=== PATIENT | male | born 1995 | race Hispanic/Latino ===

== ENCOUNTER 2019-12-14 12:30 | Emergency (ER) | payer OTHER, SELFPAY ==
[2019-12-14 12:48] VITALS: BP 142/73; PULSE 108; RESP 20; TEMP 36.8; O2SAT 98
--- NOTE | 2019-12-14 13:21 | ED.MALEGU ---
HPI - Male Genitourinary General Chief complaint: Urogenital-Male Stated complaint: Blood in urine Time Seen by Provider: 12/14/19 13:13 Source: patient and RN notes reviewed Mode of arrival: ambulatory Limitations: no limitations History of Present Illness HPI Narrative: Patient presents today with a 3 to 4-day history of dark-colored urine. When asked if he had pain with urination, patient states, I have a funny feeling afterwards. Denies concerns for sexually transmitted infections. Denies nausea, vomiting, fever, abdominal pain. He has tried no [id number] treatment prior to arrival. Denies discharge from the penis. Denies pain or swelling in the scrotum. MD Complaint: other (Dark-colored urine) Related Data Allergies Allergy/AdvReac Type Severity Reaction Status Date / Time Cultivated Oat Pollen Allergy Unknown RASH Uncoded 06/18/19 18:41 Review of Systems Review of Systems: Narrative: CONSTITUTIONAL: Denies body aches, fever, chills, or sweats. EYES: Denies visual changes, redness, or discharge. ENT: Denies rhinorrhea, congestion, sore throat, or otalgia. CARDIOVASCULAR: Denies chest pain, palpitations, or edema. RESPIRATORY: Denies cough or dyspnea. GASTROINTESTINAL: Denies abdominal pain, nausea, vomiting, or diarrhea. GENITOURINARY: Denies dysuria or hematuria. Dark urine SKIN: Denies rash, itching, or wounds. MUSCULOSKELETAL: Denies back pain, joint pain, or myalgia. NEUROLOGIC: Denies headache, numbness, tingling, or weakness. PSYCH: Denies depression or anxiety. PMFSH Comments At time of signature, I have reviewed and agree with nursing past medical, surgical, social and family history unless otherwise noted. Please see nursing chart for further information. There is no relevant family history pertinent to the presenting complaint Exam Narrative: Exam Narrative: GENERAL: Well-appearing, well-nourished, and in no acute distress. HEAD: Normocephalic, atraumatic. EYES: EOMI. No redness or drainage. Conjunctivae normal. ENT: Mucous membranes pink and moist. NECK: Normal AROM. CHEST: No respiratory distress. Clear to auscultation. HEART: Regular rate and rhythm. No murmur appreciated. Normal peripheral pulses. ABDOMEN: Soft, nontender, nondistended, normal active bowel sounds. MUSCULOSKELETAL: No bony tenderness. EXTREMITIES: Normal range of motion. No edema. SKIN: Warm, dry, no rash. NEURO: No focal deficits. Alert and oriented x3. Gait steady. PSYCH: Normal affect. No signs of depression or anxiety. Course Vital Signs Vital signs: Vital Signs Temperature 98.2 F 12/14/19 12:48 Pulse Rate 108 H 12/14/19 12:48 Respiratory Rate 20 12/14/19 12:48 Blood Pressure 142/73 H 12/14/19 12:48 Pulse Oximetry 98 12/14/19 12:48 Temperature 98.2 F 12/14/19 12:48 Pulse Rate 108 H 12/14/19 12:48 Respiratory Rate 12/14/19 12:48 Blood Pressure 142/73 H 12/14/19 12:48 Pulse Oximetry 98 12/14/19 12:48 Reviewed. Pt has been instructed to follow up with his PCP regarding his elevated blood pressure today. MDM - Male Genitourinary Lab Data Attestation: I reviewed the patient's lab results. Labs: Urine Glucose Negative Reference Range: Negative Urine Bilirubin 1+ Reference Range: Negative Urine Ketone Negative Reference Range: Negative Urine Specific [place] 1.020 Reference Range:1.001-1.035 Urine Blood Negative Reference Range: Negative * * Urine pH 7.0 Reference Range: 5.0-9.0 Urine Protein 2+ Reference Range: Negative Urine Urobilinogen 1.0 Reference Range: 0.2-1.0 Urine Nitrate Positive Reference Range: Negative Urine Leukocyte Negative Reference Range: N
== END 2019-12-14 13:27 | disposition home or self-care (01) ==
PROVIDERS: Emergency Provider Nurse Practitioner
DX: N30.00 Acute cystitis without hematuria (principal)
CPT/HCPCS: 81003; 87086; 99213; G0463

== ENCOUNTER 2019-12-16 14:59 | Emergency (ER) | payer OTHER, SELFPAY ==
--- NOTE | ~2019-12-16 | CT_ITS ---
EXAMINATION: CT abdomen pelvis w con DATE: 12/16/2019 15:58 INDICATION: Left-sided abdominal pain TECHNIQUE: Computed tomography (CT) of the abdomen and pelvis was performed with 100 mL Omnipaque-350 intravenous contrast. Automated exposure control and iterative reconstruction technique were employe d. The dose-length product was 932.20 mGy-cm. COMPARISON: 06/18/2019 FINDINGS: Lung bases are clear. Heart size is normal. No pericardial or pleural effusion. Liver, gallbladder, s pleen, pancreas, bilateral adrenal glands and kidneys are normal. Moderate amount of stool at the rec jewell and distal sigmoid colon. No obstruction or abnormal bowel wall thickening. Appendix is normal. B ladder is normal. No free intraperitoneal gas or fluid. Interval decrease in relatively symmetric sti ll mildly prominent bilateral distal external iliac lymph nodes. For reference the axis diameters hav e decreased from 1.7 cm on the left and 1.5 cm on the right on the prior study to currently measuring 1.2 cm on both the left and right. No other pathologically enlarged abdominal or pelvic lymphadenopa thy. Tiny fat-containing umbilical hernia. Bone island at the subtrochanteric left femur. Bones are o therwise unremarkable. IMPRESSION: 1. No acute intra-abdominal/pelvic process. 2. Interval decrease in size in likely reactive bilateral external iliac chain lymph nodes. 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
[2019-12-16 15:00] VITALS: BP 146/89; PULSE 124; RESP 18; TEMP 36.3; O2SAT 94
--- NOTE | 2019-12-16 15:08 | ED.ABDPAIN ---
HPI - Abdominal Pain General Chief Complaint: Abdominal Pain Stated Complaint: left side pain Time Seen by Provider: 12/16/19 15:07 Source: patient Mode of arrival: ambulatory Limitations: no limitations History of Present Illness HPI narrative: The pt is a 24 y/o male who presents to the ED with c/o hematuria and lt flank pain that began 2 days ago. The pt describes his pain as intermittent and sharp. He was seen at the [facility] 2 days ago and was given antibiotics. He was contacted today and told that his cultures came back negative for bacteria and was advised to come to the ED to rule out kidney stones. The pt reports nausea and a dry cough, but denies vomiting, diarrhea, testicular pain, rash, dysuria, rt flank pain, or fever. He notes that he did have painful urination 2 days ago, which is what made him decide to visit the clinic. The pt denies a history of hepatitis or STDs. He also denies any recent travel or using any IV drugs. The pt is not currently sexually active but has had sexual intercourse with female partners in the past. He has a PMHx of pneumonia, which he was worked up for at a couple of weeks ago. He does not smoke and drinks occasionally. MD elicited complaint: flank pain (lt) and other (hematuria) Onset (ago): day(s) (2) Location: L flank Associated symptoms: nausea and other (dry cough) Related Data Allergies Allergy/AdvReac Type Severity Reaction Status Date / Time Cultivated Oat Pollen Allergy Unknown RASH Uncoded 06/18/19 18:41 Review of Systems Review of Systems: Narrative: CONSTITUTIONAL: Denies fever. RESPIRATORY: Reports dry cough. GASTROINTESTINAL: Reports nausea. Denies vomiting or diarrhea. GENITOURINARY: Reports rt flank pain and hematuria. Denies testicular pain, rt flank pain, or dysuria. SKIN: Denies rash. All systems reviewed & are unremarkable except as noted in HPI and below PMFSH Past Medical History Medical History (Updated 12/16/19 @ 17:34 by Zuri Ames MD) Bronchitis Neutropenia Pneumonia Seasonal allergies Surgical History Surgical History (Updated 12/16/19 @ 16:08 by Carolina Kay) No pertinent past surgical history Social History Social History (Updated 12/16/19 @ 16:08 by Carolina Kay) Smoking status: Never smoker Alcohol intake: current Substance use: never Exam Narrative: Exam Narrative: GENERAL: Well-appearing, well-nourished, and in no acute distress. HEAD: Normocephalic, atraumatic. EYES: PERRLA and EOMI. Sclera icterus. ENT: Nares clear, no rhinorrhea or epistaxis. Mucous membranes moist. NECK: Supple. CHEST: Clear to auscultation. No respiratory distress. HEART: Tachycardic. Regular rhythm. No murmur heard. Normal peripheral pulses. ABDOMEN: Soft, mild lt middle ABD tenderness, nondistended, normal active bowel sounds. EXTREMITIES: Normal range of motion. No edema. SKIN: Warm, dry, no rash. Jaundice. NEURO: No focal deficits. Alert and oriented X3. Course Course Emergency Course: Pt presented for evaluation of abdominal pain, jaundice. At time of assessment, pt with ABCs intact. Vital signs notable for tachycardia. Pt not hypotensive. He has mild left abdominal tenderness. When compared to his sibling, patient is very jaundiced. When asked, patient also states he has noticed yellowing of his skin. When I reviewed his urine sample from urgent care visit, he had elevation in urobilinogen, and this persists on urinalysis today. Patient without transaminitis. Hepatitis panel is negative. He has a mild anemia. Given elevation in indirect bilirubin, I suspect this is a hemolysis issue, patient may have sickle cell disease, Guilbert syndrome,Crigler Najer syndrome. Patient has no primary care provider and has not had a work-up for any of this previously. I spoke with hematology as well as gastroenterology who will start the work-up on this patient. Patient was given the information for follow-up, he was given a copy of his CT
[2019-12-16] MEDS: SODIUM CHLORIDE 0.9% IV 1,000 ML 999 ML IV CONT ×2 (15:37→16:45)
[2019-12-16] MEDS: ONDANSETRON INJ 4 MG/2 ML VIAL IV PUSH (15:37)
[2019-12-16 15:42] LABS: Basophils Percent Auto 0.5 % (0.2-1.2); Eosinophils Percent Auto 0.4 % (0-4.4); Hematocrit 28.9 % (42.0-52.0); Hemoglobin 9.6 g/dL (14.0-18.0); Immature Granulocyte Absolute 0.21 K/mm3 (0.00-0.031); Immature Granulocyte Percent A 2.8 % (0-0.5); Lymphocytes Absolute Auto 1.51 K/mm3 (0.9-3.2); Lymphocytes Percent Auto 20.3 % (18.3-44.2); Mean Corpuscular HGB Conc 33.2 g/dl (32-36); Mean Corpuscular Hemoglobin 31.5 pg (26-34); Mean Corpuscular Volume 94.8 fl (80-100); Mean Platelet Volume 9.4 fl (7.4-10.4); Monocytes Absolute Auto 0.4 K/mm3 (0.1-0.6); Neutrophils Absolute Auto 5.3 K/mm3 (1.3-6.7); Nucleated Red Blood Cells Absolute Auto 0.1 K/mm3 (0.0-0.012); Nucleated Red Blood Cells Perc 0.7 % (0.0-0.2); Platelet Count Result 508 k/mm3 (150-375); Red Blood Count 3.05 M/mm3 (4.6-6.20); Red Cell Distribution Width 12.8 % (11.5-14.5); White Blood Count 7.5 K/mm3 (4.5-10.0)
[2019-12-16 15:49] LABS: Add Urine Microscopic? YES; Appearance Urine Clear (Clear); Bacteria Urine Trace /hpf; Bilirubin Urine Negative (Negative); Blood Urine Negative (Negative); Color Urine Amber (Yellow); Glucose Urine UA Negative (Negative); Ketones Urine Negative (Negative); Leukocyte Esterase Ur Negative LEU/UL (Negative); Mucus Urine Rare /lpf; Nitrate Urine Negative (Negative); Protein Urine 1+ mg/dL (Negative); RBC Urine 0-2 /hpf (0-2); Squamous Epithelial Cell Urine Rare /hpf (Few); WBC Urine 0-3 /hpf
[2019-12-16 15:54] LABS: Specific Grav Ur 1.033 (1.001-1.035)
[2019-12-16 15:55] LABS: Blood Urea Nitrogen 17 mg/dL (8-26); Estimated CRCL calculation 132 ml/min; Estimated Glomerular Filt Rate > 60
[2019-12-16 15:56] LABS: Alanine Aminotransferase 48 U/L (4-50); Albumin Level 5.2 g/dL (3.5-5.1); Alkaline Phosphatase 84 U/L (38-126); Aspartate Amino Transferase 42 U/L (17-59); Bilirubin Indirect 8.8 mg/dL (0-1.1); Bilirubin,Total 10.4 mg/dL (0.2-1.3); Blood Urea Nitrogen 17 mg/dL (9-20); Calcium 9.8 mg/dL (8.4-10.2); Carbon Dioxide 24 mmol/L (22-30); Chloride 101 mmol/L (98-107); Estimated CRCL calculation 147 ml/min; Estimated Glomerular Filt Rate > 60; Glucose 97 mg/dL (75-110); Lipase 122 U/L (23-300); Potassium 3.9 mmol/L (3.4-5.0); Sodium 138 mmol/L (137-145)
[2019-12-16 15:57] LABS: Lactic Acid Reflex 1.1 mmol/L (0.7-2.1)
[2019-12-16 16:26] LABS: Hepatitis B Surface Antigen Negative (Negative)
[2019-12-16 16:32] LABS: HAV RESULT Negative (Negative); Hepatitis B Core IgM Result Negative (Negative)
[2019-12-16 16:43] LABS: Hepatitis C Virus Antibody Negative (Negative)
[2019-12-16 17:00] VITALS: BP 103/58; PULSE 102; RESP 16; O2SAT 100
[2019-12-16 17:05] LABS: Immature Reticulocyte Fraction 37.4 % (3.0-15.9); Reticulocyte Hemoglobin Conten 39.4 pg (28.2-35.7); Reticulocyte Percent 5.55 % (0.7-4.3); Reticulocytes Absolute 0.17 B/L (32.2-175.7)
[2019-12-16 17:15] LABS: Lactate Dehydrogenase 748 U/L (313-618)
[2019-12-21 05:39] LABS: Haptoglobin 20 mg/dL (43-212)
[2019-12-22 05:12] LABS: Hematocrit 31.6 % (38.5-50.0); Hemoglobin 9.9 g/dL (13.2-17.1); MCH 32.9 pg (27.0-33.0); RDW 14.6 % (11.0-15.0); Red Blood Cell Count 3.01 Mill/uL (4.20-5.80)
== END 2019-12-16 17:43 | disposition home or self-care (01) ==
PROVIDERS: Emergency Provider Emergency Medicine
DX: R17 Unspecified jaundice (principal); D59.9 Acquired hemolytic anemia, unspecified; D69.41 Evans syndrome
CPT/HCPCS: 36415; 74177; 80053; 80074; 81001; 82248; 83010; 83021; 83605; 83615; 83690; 85014; 85018; 85025; 85041; 85046; 96361; 96374; 99284; J2405; J7030; Q9967

== ENCOUNTER 2024-01-07 17:26 | Emergency (ER) | payer OTHER, SELFPAY ==
[2024-01-07 17:36] VITALS: BP 143/89; PULSE 90; RESP 16; TEMP 37.1; O2SAT 99
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
[2024-01-07] MEDS: KETOROLAC (*BKC) 60 MG/2 ML VIAL IM (17:52)
== END 2024-01-07 18:15 | disposition home or self-care (01) ==
PROVIDERS: Emergency Provider Nurse Practitioner Family
DX: M54.50 Low back pain, unspecified (principal)
CPT/HCPCS: 96372; 99213; G0463; J1885

== ENCOUNTER 2024-02-24 09:01 | Emergency (ER) | payer OTHER, SELFPAY ==
--- NOTE | ~2024-02-24 | XR_ITS ---
Left Hand Technique: PA, oblique, and lateral views were obtained. Clinical History: Fourth digit pain and swelling Findings: No acute fracture or dislocation is seen. Osseous alignment is anatomic. Joint spaces are p reserved. Soft tissues are unremarkable. Impression: Unremarkable left hand. Reviewed, dictated and finalized at location . Impression: Unremarkable left hand.
--- NOTE | 2024-02-24 09:10 | ED.UPPEXIN ---
HPI - Extremity Injury (Upper) General Chief Complaint: Extremity Injury, Upper Stated Complaint: finger on left hand painful/pain in left arm Time Seen by Provider: 02/24/24 09:12 Source: patient Mode of arrival: ambulatory Limitations: no limitations History of Present Illness HPI narrative: Ellis is a 28-year-old male patient presenting to the emergency room today with complaints of pain to his left 4th finger over the PIP joint and D IP joint with pain radiating into his hand and arm. Reports that the symptoms started yesterday. Reports the day before he was outside doing yd work and lifting items. Did not injure himself at that time but that next morning he developed swelling and pain in the 4th finger. History of Valencia syndrome. Related Data Allergies Allergy/AdvReac Type Severity Reaction Status Date / Time Cultivated Oat Pollen Allergy Unknown RASH Uncoded 02/24/24 09:22 Review of Systems Review of Systems: Pertinent positives per HPI. Patient denies any fever, chills, rash, headache, visual changes, dizziness, cough, runny nose, sore throat, shortness of breath, chest pain, palpitations, nausea, vomiting, diarrhea, constipation, abdominal pain, or any urinary issues. PMFSH Past Medical History Medical History Bronchitis Valencia syndrome Hemolytic anemia Neutropenia Pneumonia Seasonal allergies Surgical History Surgical History No pertinent past surgical history Social History Social History Smoking status: Never smoker Alcohol intake: current Substance use: never Comments At the time of my signature, I reviewed and agree with the nursing past medical, surgical, social, and family history. There is no relevant family history pertinent to the patient complaint. Exam Narrative: General: Well-developed, well nourished, in no apparent distress Head: Normocephalic, atraumatic. Cardio: Regular rate and rhythm, s1 and s2 normal, no murmur appreciated. Resp: Clear to auscultation bilaterally, no rhonchi, rales, wheezing or rubs. Musculoskeletal: No deformity, no open areas of the skin, redness and swelling over the PIP joint of the left 4th finger, tender to palpation over the PIP joint and the IP joint of the left 4th finger, limited range of motion due to pain, severe pain with flexion over the D IP and PIP joint as well as extension over the D IP and PIP joint, muscle strength strong and equal, peripheral pulse strong, no cyanosis, normal gait and station Course Course Emergency Course: Portions of this record may have been created with voice recognition software. Level of Care: Express Care Visit Vital Signs Vital signs: Vital Signs Temperature 36.7 C 02/24/24 09:15 Pulse Rate 80 02/24/24 09:15 Respiratory Rate 16 02/24/24 09:15 Blood Pressure 127/74 02/24/24 09:15 Pulse Oximetry 98 02/24/24 09:15 Oxygen Delivery Room Air 02/24/24 09:15 Temperature 36.7 C 02/24/24 09:15 Pulse Rate 80 02/24/24 09:15 Respiratory Rate 16 02/24/24 09:15 Blood Pressure 127/74 02/24/24 09:15 Pulse Oximetry 98 02/24/24 09:15 Oxygen Delivery Room Air 02/24/24 09:15 Vital signs reviewed MDM - Extremity Injury (Upper) MDM Narrative Medical decision making narrative: At the time of visit patient is resting comfortably on the exam table. Patient appears to be nontoxic. Diagnosis: X-ray of the left hand shows no sign of fracture or malalignment. Plan: I suspect patient has tendinitis of the left 4th finger. Prescription for Medrol Dosepak was sent to the pharmacy. Supportive measures were discussed with the patient and they voiced understanding discharge instructions and agrees to treatment plan. Return precautions reviewed Differential Diagnosis Differential diagnosis: Likely finger
[2024-02-24 09:15] VITALS: BP 127/74; PULSE 80; RESP 16; TEMP 36.7; O2SAT 98
== END 2024-02-24 09:51 | disposition home or self-care (01) ==
PROVIDERS: Emergency Provider Nurse Practitioner Family
DX: M77.8 Other enthesopathies, not elsewhere classified (principal); D69.41 Evans syndrome
CPT/HCPCS: 29130; 73130; 99213; G0463

== ENCOUNTER 2024-09-25 15:38 | Emergency (ER) | payer OTHER, SELFPAY ==
[2024-09-25 15:51] VITALS: BP 144/79; PULSE 81; RESP 16; TEMP 36.6; O2SAT 99
--- NOTE | 2024-09-25 15:59 | ED_ITS ---
HPI - URI/Sore Throat General Chief Complaint: Upper Respiratory Infection Stated Complaint: cough,chest hurts Time Seen by Provider: 09/25/24 15:59 Source: patient Mode of arrival: ambulatory Limitations: no limitations History of Present Illness HPI Narrative: 29 yo M presents with c/o cough, sinus congestion, sinus pressure and headaches for 1 month. Taking OTC theraflu with no relief of symtpoms. States cough worse. Denies CP but feels like can't take full breath. Afebrile. All systems reviewed and negative except as noted above. Related Data Allergies Allergy/AdvReac Type Severity Reaction Status Date / Time Cultivated Oat Pollen Allergy Unknown RASH Uncoded 09/25/24 15:42 Review of Systems Review of Systems: CONSTITUTIONAL: Denies fever, chills, or sweats. EYES: Denies visual changes, redness, or discharge. ENT: Reports rhinorrhea, congestion sinus pressure. Denies sore throat, or otalgia. CARDIOVASCULAR: Denies chest pain, palpitations, or edema. RESPIRATORY: reports cough. Denies dyspnea. GASTROINTESTINAL: Denies abdominal pain, nausea, vomiting, or diarrhea. GENITOURINARY: Denies dysuria or hematuria. SKIN: Denies rash or itching. MUSCULOSKELETAL: Denies back pain, joint pain, or myalgia. NEUROLOGIC: Denies headache, numbness, or weakness. PSYCHIATRIC: Denies anxiety or depression. All other systems reviewed are negative, except as documented in HPI. PMFSH Past Medical History Medical History Bronchitis Valencia syndrome Hemolytic anemia Neutropenia Pneumonia Seasonal allergies Surgical History Surgical History No pertinent past surgical history Social History Social History Smoking status: Never smoker Alcohol intake: current Substance use: never Comments At time of signature, agree with nursing past medical, surgical, social and family history. There is no relevant family history pertinent to the presenting complaint. Exam Narrative: GENERAL: This is a well-nourished, well-developed patient, in no apparent distress. HEAD: normocephalic, atraumatic. EYES: PERRL. Sclera clear/white. Vision is grossly intact. EARS: External ears normal, auditory canals clear and without drainage, TMs normal without perforation. Hearing grossly intact. NOSE: External nose normal with moderate congestion, purulent nasal drainage. Maxillary and frontal sinus tenderness bilaterally THROAT: Mucous membranes moist, posterior pharynx clear. NECK: Neck supple, non-tender without lymphadenopathy, masses or thyromegaly. CARDIOVASCULAR: Regular rate and rhythm without murmurs, gallops, or rubs. RESPIRATORY: decreased throughout all lung pacheco. Breath sounds equal bilaterally. No wheezes, rales, or rhonchi. SKIN: warm, Dry, intact with no suspicious lesions or rash, good texture and turgor. NEURO: awake, alert, and oriented to person, place and time. There were no obvi ous focal neurologic abnormalities. EXTREMITIES: No joint tenderness, effusion, or edema noted. Course Course Level of Care: Express Care Visit Vital Signs Vital signs: Vital Signs Temperature 36.6 C 09/25/24 15:51 Pulse Rate 81 09/25/24 15:51 Respiratory Rate 16 09/25/24 15:51 Blood Pressure 144/79 H 09/25/24 15:51 Pulse Oximetry 99 09/25/24 15:51 Oxygen Delivery Room Air 09/25/24 15:51 Temperature 36.6 C 09/25/24 15:51 Pulse Rate 81 09/25/24 15:51 Respiratory Rate 16 09/25/24 15:51 Blood Pressure 144/79 H 09/25/24 15:51 Pulse Oximetry 99 09/25/24 15:51 Oxygen Delivery Room Air 09/25/24 15:51 Reviewed MDM - URI/Sore Throat MDM Narrative Medical decision making narrative: will treat patient with antibiotic for bacterial sinusitis due to duration of symptoms And exam findings. Patient is aware of diagnosis, understands and agrees to treatment plan. Anticipatory guidance given. Patient agrees to follow-up as directed and is aware of reasons to seek care at the emergency department. Portions of this record may have been created with voice recognition software Differential Diagnosis Differential diagnosis: Likely upper respiratory infection, sinusitis, viral infection and bronchitis Discharge Plan Discharge Clinical Impression: Acute bacterial sinusitis, Acute bronchitis Patient Disposition: Home, Self-Care Condition: Stable Instructions: Antibiotic Form, Sinusitis (ED) Additional Instructions: take medications as prescribed. Take Tylenol or ibuprofen every 6-8 hours as needed for pain. Drink at least 64 oz of water a day. Follow-up with your primary care physician if symptoms are not improving. Prescriptions: New albuterol sulfate 90 mcg/actuation HFA aerosol inhaler 2 puff inhalation Q4-6H PRN (Reason: shortness of breath or wheezing) Qty: 8.5 0RF amoxicillin 875 mg tablet 875 mg PO Q12H 10 Days Qty: 20 0RF benzonatate 200 mg capsule 200 mg PO TID PRN (Reason: cough) Qty: 20 0RF fluticasone propionate [Flonase Allergy Relief] 50 mcg/actuation spray,suspension 1 spray intranasal BID Qty: 16 0RF Rx Instructions: administer into each nostril loratadine [Claritin] 10 mg tablet 10 mg PO DAILY Qty: 30 0RF prednisone 20 mg tablet 40 mg PO DAILY 5 Days Qty: 10 0RF Follow-up/Referrals: UNKNOWN,DOCTOR [Primary Care Provider] - Time of Disposition: 16:17
== END 2024-09-25 16:23 | disposition home or self-care (01) ==
PROVIDERS: Emergency Provider Nurse Practitioner Family
DX: J01.90 Acute sinusitis, unspecified (principal); J20.9 Acute bronchitis, unspecified
CPT/HCPCS: 99213; G0463

== ENCOUNTER 2025-01-01 11:02 | Emergency (ER) | payer OTHER, SELFPAY ==
--- NOTE | ~2025-01-01 | XR_ITS ---
[[id number] ] INDICATION: Left rib pain after recent fall TECHNIQUE: Frontal projection of the upper left ribs, frontal projection of the lower left ribs, obli que projection of all the left ribs, frontal inspiratory chest x-ray for interpretation. FINDINGS: There are no displaced rib fractures identified. There are no soft tissue abnormality see n. The lungs are clear. IMPRESSION: 1:No acute displaced rib fractures. Reviewed, dictated and finalized at location [facility]
[2025-01-01 11:11] VITALS: BP 134/72; PULSE 67; RESP 16; TEMP 36.3; O2SAT 100
--- NOTE | 2025-01-01 12:08 | ED.GENADULT ---
HPI - General Adult General Chief complaint: Fall Stated complaint: left side rib pain History of Present Illness HPI narrative: Ellis Gibbons Is a 29-year-old male who presents today with reports of snowboarding 5 days ago and when he fell his cell phone was in his pocket over his left lower ribcage and he states the phone stuck into his left ribs initially when he fell down. He states that he had a little bit of left lower back pain after the fall but that is gotten better and he is not having any pain anywhere else he has continued left lower rib pain from the fall and wanted to get it checked out. He states he has been taking ibuprofen 800 mg has helped some but he states that when he sneezes, coughs, does certain movements the pain is quite severe. Denies any shortness of breath denies any past medical history and he is not on any regular medications. Related Data Allergies Allergy/AdvReac Type Severity Reaction Status Date / Time Cultivated Oat Pollen Allergy Unknown RASH Uncoded 01/01/25 11:06 Review of Systems Review of Systems: All systems reviewed & are unremarkable except as noted in HPI and below PMFSH Past Medical History Medical History Hemolytic anemia Valencia syndrome Neutropenia Bronchitis Seasonal allergies Pneumonia Surgical History Surgical History No pertinent past surgical history Social History Social History Smoking status: Never smoker Alcohol intake: current Substance use: never Exam Narrative: GENERAL: Well-appearing, well-nourished, and in no acute distress. HEAD: Normocephalic, atraumatic. EYES: PERRLA and EOMI. ENT: Nares clear, no rhinorrhea or epistaxis. Mucous membranes moist. Oropharynx without tonsillar hypertrophy exudate or other lesions. Bilateral TMs pearly diaz nonbulging NECK: Supple. No adenopathy or masses. No carotid bruits or JVD CHEST: Clear to auscultation. No respiratory distress. No wheezes rales or rhonchi- Pain reproducible to the left lateral lower ribcage with palpation. No crepitus appreciated, no obvious deformity, ecchymosis, erythema or edema. HEART: Regular rate and rhythm. No murmur heard. Normal peripheral pulses. ABDOMEN: Soft, nontender, nondistended, normal active bowel sounds. EXTREMITIES: Normal range of motion. No edema. SKIN: Warm, dry, no rash. NEURO: No focal deficits. Alert and oriented x3. PSYCH: Normal mood and affect. Course Course Level of Care: Express Care Visit Vital Signs Vital signs: Vital Signs Temperature 36.3 C L 01/01/25 11:11 Pulse Rate 67 01/01/25 11:11 Respiratory Rate 16 01/01/25 11:11 Blood Pressure 134/72 01/01/25 11:11 Pulse Oximetry 100 01/01/25 11:11 Oxygen Delivery Room Air 01/01/25 11:11 Temperature 36.3 C L 01/01/25 11:11 Pulse Rate 67 01/01/25 11:11 Respiratory Rate 16 01/01/25 11:11 Blood Pressure 134/72 01/01/25 11:11 Pulse Oximetry 100 01/01/25 11:11 Oxygen Delivery Room Air 01/01/25 11:11 Medical Decision Making [facility] Narrative Medical decision making narrative: 29-year-old who presents after falling off a snowboard 5 days ago. He presents with continued left lower rib cage pain that is worse with palpation and certain movements. Lung sounds clear to auscultation. No respiratory distress. No wheezes rales or rhonchi- Pain reproducible to the left lateral lower ribcage with palpation. No crepitus appreciated, no obvious deformity, ecchymosis, erythema or edema. Sating 100% on RA Concern for : contusion/ rib fracture / pneumothorax PLan to check chest XR with Left sided rib XR : XR is negative for acute fracture of findings. Will d/c home with continued Ibuprofen / Flexeril / Lidocaine patches CLose PCP follow up Return precautions discussed Medical Records Medical records reviewed: Yes I reviewed the external patient's medical records. Vital Signs Vital Signs: Vital Signs Temperature 36.3 C L 01/01/25 11:11 Pulse Rate 67 01/01/25 11:11 Respiratory Rate 16 01/01/25 11:11 Blood Pressure 134/72 01/01/25 11:11 Pulse Oximetry 100 01/01/25 11:11 Oxygen Delivery Room Air 01/01/25 11:11 Temperature 36.3 C L 01/01/25 11:11 Pulse Rate 67 01/01/25 11:11 Respiratory Rate 16 01/01/25 11:11 Blood Pressure 134/72 01/01/25 11:11 Pulse Oximetry 100 01/01/25 11:11 Oxygen Delivery Room Air 01/01/25 11:11 Vitals reviewed by me Imaging Data Radiologist's impression: Impressions Ribs w/Chest X-Ray 01/01/25 12:25 IMPRESSION: 1:No acute displaced rib fractures. Discharge Plan Discharge Clinical Impression: Chest wall contusion Qualifiers: Encounter type: initial encounter Laterality: left Qualified Code(s): S20.212A - Contusion of left front wall of thorax, initial encounter Patient Disposition: Home, Self-Care Condition: Stable Instructions: Antibiotic Form Additional Instructions: Continue to take the Ibuprofen up to three times a day for apin Start using the lidocaine patches to area of pain 12 hours on 12 hours off Start using the cyclobenzaprine up to three times a day for severe spasm pain or at bedtime - this might make you sleepy - do not drive or operate machinery while taking this medication Follow up with your PCP in 1 week You should be improving in the next few days If you develop any worsening symptoms such as increased pain/ shortness of breath / difficulty breathing proceed to the ER. Patient Language: American Prescriptions: New ibuprofen 800 mg tablet 800 mg PO TID PRN (Reason: pain) Qty: 30 0RF cyclobenzaprine 10 mg tablet 10 mg PO TID PRN (Reason: muscle spasm) Qty: 30 0RF lidocaine 5 % adhesive patch,medicated 1 patch topical DAILY Qty: 30 0RF Rx Instructions: leave on most painful area for up to 12 hrs No Action albuterol sulfate 90 mcg/actuation HFA aerosol inhaler 2 puff inhalation Q4-6H PRN (Reason: shortness of breath or wheezing) Qty: 8.5 0RF fluticasone propionate [Flonase Allergy Relief] 50 mcg/actuation spray,suspension 1 spray intranasal BID Qty: 16 0RF Rx Instructions: administer into each nostril loratadine [Claritin] 10 mg tablet 10 mg PO DAILY Qty: 30 0RF Follow-up/Referrals: PHYSICIAN,V/[facility] [employer] [Primary Care Provider] - Stand Alone Forms: Work/School Release IP Time of Disposition: 13:00
== END 2025-01-01 13:05 | disposition home or self-care (01) ==
PROVIDERS: Emergency Provider Nurse Practitioner Family
DX: S20.212A Contusion of left front wall of thorax, initial encounter (principal); W19.XXXA Unspecified fall, initial encounter
CPT/HCPCS: 71101; 99213; G0463